=== PATIENT | male | born 2005 | race Caucasian/White ===

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

== ENCOUNTER 2025-03-13 21:54 | Emergency (ER) | payer MEDICAID, SELFPAY ==
[2025-03-13 21:54] VITALS: BP 147/88; PULSE 93; RESP 18; TEMP 36.8; O2SAT 99; BMI 39.9
--- NOTE | 2025-03-13 22:00 | RAD_ITS ---
PROCEDURE: RIGHT ANKLE MIN 3 VIEWS 03/13/2025 REASON FOR EXAM: TRAUMA TECHNIQUE: Procedure Code: RADANK Modality: DX Procedure: ANKLE MIN 3 VIEWS Laterality: Right COMPARISON: None. FINDINGS: No acute fracture or dislocation. Alignment is anatomic. Preserved joint spaces. No aggressive osseous lesion. No marked soft tissue swelling or radiopaque foreign body. RAD/Ankle min 3 Views IMPRESSION: No acute fracture or dislocation. Reading Location: [id number]
--- NOTE | 2025-03-13 22:35 | EDS_ITS ---
HPI History of Present Illness Chief Complaint: Lower Extremity Injury Detail of Chief Complaint: Patient injured his right ankle. History of prior injuries Informant: patient Onset/Context/Timing Onset: Month(s) (Most recent injury occurred 1 month ago.) Context: Sudden Onset Timing: Continuous and Waxes and wanes Quality: Pain medial and lateral aspect of the ankle and near the arch. Location: Right Current Severity: Mild Maximum Severity: Moderate Worsened by: Weightbearing Relieved by: Nothing Associated Symptoms Associated Symptoms: Persistent pain Narrative Narrative: Patient is a 19-year-old male. He has history of prior ankle sprains. He denies paresthesia, anesthesia buttocks. He injured this a month ago. He states he has been playing ice and taking anti-inflammatories without improvement. He has never seen an orthopedic surgeon or utility helicopter repairer for this. Prior similar symptoms: Yes Recent Illness/Hospitalization: No PFSH [facility] Medical History Physical exam, pre-employment Concussion Chest pain Home Medications ?Medication ?Instructions ?Recorded ?Last Taken ?Type naproxen 500 mg tablet 500 mg PO BID #14 tabs 03/13 Unknown Rx Allergy/AdvReac Type Severity Reaction Status Date / Time No Known Allergies Allergy Verified 03/13/25 21:55 Surgical History H/O knee surgery Social History Smoking Status: Never smoker alcohol intake: never ROS ROS ED Musculoskeletal Musculoskeletal: Reports other Details: Per HPI narrative Integumentary Denies abscess, Abrasions or rash Neurologic Neurologic: Denies paresthesias or weakness Hematologic/Lymphatic Hematologic/Lymphatic: Reports systems reviewed and no addt'l complaints, except as documented EXAM Physical Exam Const Vital Signs: 03/13/25 21:54 Temperature 98.3 F Temperature Source Temporal Pulse Rate 93 Respiratory Rate 18 Blood Pressure 147/88 H Blood Pressure Mean 107 Pulse Ox 99 Oxygen Delivery Method Room Air Positive well nourished and well developed Constitutional Narrative: Vital signs are marked for elevated blood pressure. General Appearance ED: well developed and NAD; Negative for pallor Eyes PERRL and EOMs intact bilaterally General Eye ED: Negative for pale conjunctiva or scleral icterus Resp normal respiratory effort Cardio regular rate and regular rhythm Extremity normal to inspection Extremity Narrative: There is pain ovation over the lateral medial malleolus. There is pain ovation of the plantar surface and forced dorsiflexion causes him pain on the plantar surface of his foot. There is no bruising noted. There is no abrasions noted. DP pulses palpable. Difficult to palpate PT pulse because of body habitus. Neuro oriented x3, CN's II-XII intact bilaterally and no sensory deficits noted Sensorium / Orientation: alert Psych mental status grossly normal Skin no rashes or lesions noted, no wounds and skin turgor normal General Skin Exam: elasticity normal; Negative for jaundice or pallor MDM MDM MDM Narrative Medical decision making narrative: Right ankle pain for 1 month. Has history of chronic injury to the ankle. Nurse protocol was initiated. Suspect this is a sprained ankle since he is reporting no improvement will obtain x-ray to see if there is been a fracture that was not treated. Radiography Chest X-Ray - ED: Read by ED Physician (Three-view x-ray of the ankle was independent reviewed interpreted by me as negative. There is no fracture, subluxation dislocation. No asymmetry of the mortise.) Diagnostic Testing: Clinical Impression(s) from Imaging Studies Ankle X-Ray 03/13/25 22:00 IMPRESSION: No acute fracture or dislocation. Reading Location: [facility] Treatment and Re-Evaluation :: Patient has pain to patient over the lateral medial malleolus. There is pain ovation of the anterior talofibular ligament. There is pain over the plantar surface and forced dorsiflexion causes him increased pain. He has not followed up with anyone. He was referred to Dr. Quiñones. Discharge Plan Triage Chief Complaint: Lower Extremity Injury ED Provider: Rich Chester Dx/Rx/DC Orders Clinical Impression: Sprain of anterior talofibular ligament of right ankle, Plantar fasciitis of right foot Instructions: ED Plantar Fasciitis, ED Ankle Sprain (Adult) Prescriptions: New naproxen 500 mg tablet 500 mg PO BID Qty: 14 0RF Primary Care Provider: Cristina De La O Referrals: Bogdan Quiñones DPM [Med Staff - Active Staff, Podiatry] - 3-5 Days Cristina De La O MD [Primary Care Provider, Pediatrics] Print Language: Salvadorean Disposition Disposition: Home, Self Care Discharge Date/Time: 03/13/25 22:47
== END 2025-03-13 22:47 | disposition home or self-care (01) ==
LOC: ED 22:45
PROVIDERS: Emergency Provider Emergency Medicine; PCP Pediatrics; Visit Provider Emergency Medicine
DX: S93.491A Sprain of other ligament of right ankle, initial encounter (principal); X58.XXXA Exposure to other specified factors, initial encounter; M72.2 Plantar fascial fibromatosis
CPT/HCPCS: 73610; 99282

== ENCOUNTER 2025-04-15 21:37 | Emergency (ER) | payer SELFPAY ==
[2025-04-15 21:39] VITALS: BP 163/104; PULSE 117; RESP 18; TEMP 36.3; O2SAT 99; BMI 39.2
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
--- NOTE | 2025-04-15 22:04 | RAD_ITS ---
PROCEDURE: RAD/Shoulder min 2 Views
--- NOTE | 2025-04-15 22:04 | RAD_ITS ---
PROCEDURE: RAD/Hand Min 3 Views
[2025-04-15 22:30] VITALS: BP 135/97; PULSE 118; RESP 20; TEMP 36.6; O2SAT 98
== END 2025-04-15 22:37 | disposition home or self-care (01) ==
PROVIDERS: Emergency Provider Emergency Medicine; Visit Provider Emergency Medicine
DX: S40.011A Contusion of right shoulder, initial encounter (principal); S60.221A Contusion of right hand, initial encounter; Y92.410 Unspecified street and highway as the place of occurrence of the external cause; V40.5XXA Car driver injured in collision with pedestrian or animal in traffic accident, initial encounter
CPT/HCPCS: 73030; 73130; 99282